=== PATIENT | female | born 1990 | race Caucasian/White ===

== ENCOUNTER 2021-06-22 11:47 | Emergency (ER) | payer BC ==
[2021-06-22 12:51] VITALS: BP 111/63; PULSE 75
== END 2021-06-22 12:48 | disposition home or self-care (01) ==
LOC: MW.ED 11:47
DX: N39.0 Urinary tract infection, site not specified (principal); Z86.16 Personal history of COVID-19
CPT/HCPCS: 81001; 81025; 99283

== ENCOUNTER 2022-08-13 02:51 | Emergency (ER) | payer BC ==
[2022-08-13 03:05] VITALS: BP 125/75
[2022-08-13 04:12] LABS: CORONAVIRUS COVID-19 NAA NEGATIVE (NEGATIVE); INFLUENZA A NAA NEGATIVE (NEGATIVE); INFLUENZA B NAA NEGATIVE (NEGATIVE)
[2022-08-13 04:17] LABS: CARBON DIOXIDE,CO2 23.7 mmol/L (21.0-32.0); POTASSIUM,K 3.6 mmol/L (3.5-5.1)
[2022-08-13 04:48] VITALS: PULSE 67
== END 2022-08-13 04:47 | disposition home or self-care (01) ==
LOC: MW.ED 02:51
DX: O20.9 Hemorrhage in early pregnancy, unspecified (principal); Z86.16 Personal history of COVID-19; Z20.822 Contact with and (suspected) exposure to COVID-19; Z3A.08 8 weeks gestation of pregnancy
CPT/HCPCS: 0240U; 36415; 76801; 80053; 81001; 84702; 85025; 86900; 86901; 99284; 99283

== ENCOUNTER 2023-03-14 05:10 | Inpatient (IN) | payer BC ==
[2023-03-14] MEDS ORDERED: Oxytocin/0.9 % Sodium Chloride 30 UNIT/500 ML BAG IV SCH ×2 (06:00)
[2023-03-14] MEDS ORDERED: Sodium Chloride 0.9% 20 ML SDV IV PRN (06:00)
[2023-03-14] MEDS ORDERED: Lactated Ringers 1,000 ML IV SCH ×3 (06:00→09:45)
[2023-03-14] MEDS ORDERED: Lidocaine 1% 50 ML MDV INJECT PRN (06:00)
[2023-03-14] MEDS ORDERED: Sodium Chloride 0.9% 10 ML Syringe FLUSH PRN (06:00)
[2023-03-14] MEDS ORDERED: Sodium Chloride 0.9% 2.5 ML Syringe FLUSH PRN (06:00)
[2023-03-14] MEDS ORDERED: Tranexamic Acid IN NACL,ISO-OS 1,000 MG in Premix Bag 1 BAG IV PRN ×2 (06:00)
[2023-03-14] MEDS ORDERED: Carboprost Tromethamine 250 MCG/1 mL Vial IM PRN (06:00)
[2023-03-14] MEDS ORDERED: Citric Acid/Sodium Citrate Solution 30 ML Cup PO ONE (06:00)
[2023-03-14] MEDS ORDERED: Water For Irrigation,Sterile 1,000 ML Container IRR PRN (06:00)
[2023-03-14] MEDS ORDERED: Misoprostol 200 MCG Tab PO PRN (06:00)
[2023-03-14] MEDS ORDERED: Methylergonovine 0.2 MG/1 ML Amp IM PRN ×2 (06:00→09:39)
[2023-03-14 06:33] LABS: HEMATOCRIT 33.2 % (37.0-47.0); HEMOGLOBIN 11.1 g/dL (12.0-16.0); MEAN CORPUSCULAR HEMOGLOBIN 27.1 pg (28.0-32.0); MEAN CORPUSCULAR HGB CONC 33.4 g/dL (32.0-36.0); MEAN PLATELET VOLUME 12.5 fL (9.4-12.3); PLATELET COUNT,PLT 157 K/uL (150-400); WHITE BLOOD CELL COUNT,WBC 6.76 K/uL (3.9-11.3)
[2023-03-14] MEDS ORDERED: Oxytocin 10 Units/1 ML SDV ONE (06:46)
[2023-03-14] MEDS ORDERED: droPERidol 5 MG/2 ML SDV ONE (06:47)
[2023-03-14] MEDS ORDERED: Phenylephrine 1% 10 MG/ML SDV ONE (06:47)
[2023-03-14] MEDS ORDERED: Ketorolac 30 MG/ML SDV ONE (06:47)
[2023-03-14] MEDS ORDERED: Lidocaine 2% 5 ML SDV ONE (06:47)
[2023-03-14] MEDS ORDERED: Ropivacaine 0.5% 5 MG/ML 30 ML SDV ONE (06:47)
[2023-03-14] MEDS ORDERED: Ondansetron 4 MG/2 ML SDV ONE (06:47)
[2023-03-14] MEDS ORDERED: Dexmedetomidine 200 MCG/2 ML SDV ONE (06:47)
[2023-03-14] MEDS ORDERED: Dexamethasone 4 MG/ML 5 ML MDV ONE (06:47)
[2023-03-14] MEDS ORDERED: ceFAZolin 1 GM Vial ONE (06:48)
[2023-03-14] MEDS ORDERED: fentaNYL 100 MCG/2 ML SDV ONE (06:49)
[2023-03-14] MEDS ORDERED: Morphine PF 10 MG/10 ML SDV ONE (06:49)
[2023-03-14] MEDS ORDERED: Water For Injection, Sterile 20 ML ONE (06:55)
[2023-03-14] MEDS ORDERED: Albuterol 0.083% 2.5 MG/3 ML Neb Soln NEB PRN (07:19)
[2023-03-14] MEDS ORDERED: Acetaminophen/oxyCODONE 325-5 MG Tab PO PRN ×3 (07:19→09:39)
[2023-03-14] MEDS ORDERED: fentaNYL 50 MCG/ML SDV IVPUSH PRN ×2 (07:19)
[2023-03-14] MEDS ORDERED: Ondansetron 4 MG/2 ML SDV IVPUSH PRN ×3 (07:19→09:39)
[2023-03-14] MEDS ORDERED: diphenhydrAMINE 50 MG/ML SDV IVPUSH PRN ×2 (07:19→09:39)
[2023-03-14] MEDS ORDERED: droPERidol 5 MG/2 ML SDV IVPUSH PRN (07:19)
[2023-03-14] MEDS ORDERED: Metoclopramide 10 MG/2 ML SDV IVPUSH PRN (07:19)
[2023-03-14] MEDS ORDERED: Morphine 2 MG/ML SYRINGE IVPUSH PRN (07:19)
[2023-03-14] MEDS ORDERED: HYDROmorphone 1 MG/ML Syringe IVPUSH PRN (07:19)
[2023-03-14] MEDS ORDERED: Naloxone 0.4 MG/ML SDV IVPUSH PRN (07:19)
[2023-03-14] MEDS ORDERED: ePHEDrine 50 MG/ML SDV IVPUSH PRN (07:19)
[2023-03-14] MEDS ORDERED: Glycopyrrolate 0.2 MG/ML SDV ONE (08:12)
[2023-03-14] MEDS ORDERED: Ketorolac 30 MG/ML SDV IVPUSH SCH ×2 (09:00→09:45)
[2023-03-14] MEDS ORDERED: Bisacodyl 10 MG Supp RECTAL PRN (09:39)
[2023-03-14] MEDS ORDERED: Oxytocin 10 Units/1 ML SDV IM PRN (09:39)
[2023-03-14] MEDS ORDERED: Misoprostol 200 MCG Tab RECTAL PRN (09:39)
[2023-03-14] MEDS ORDERED: Lanolin 100% Cream 7 GM Tube TOP PRN (09:39)
[2023-03-14 09:52] LABS: PH,UMBILICAL ARTERIAL 7.24 (7.18-7.38); PH,UMBILICAL VENOUS 7.31 (7.25-7.45)
[2023-03-14] MEDS: Acetaminophen 1,000 MG in Premix Bag 1 BAG IV SCH ×3 (11:14→23:07)
[2023-03-14] MEDS: Simethicone 80 MG Tab.Chew PO SCH ×3 (12:50→23:07)
[2023-03-14] MEDS: Ketorolac 30 MG/ML SDV IVPUSH SCH ×3 (14:58→20:33)
[2023-03-14] MEDS: Docusate Sodium 100 MG Cap PO SCH (20:33)
[2023-03-15] MEDS: Ketorolac 30 MG/ML SDV IVPUSH SCH ×2 (02:55→09:00)
[2023-03-15] MEDS: Acetaminophen 1,000 MG in Premix Bag 1 BAG IV SCH (05:46)
[2023-03-15] MEDS: Simethicone 80 MG Tab.Chew PO SCH ×3 (05:46→19:05)
[2023-03-15 06:20] LABS: HEMATOCRIT 27.6 % (37.0-47.0); HEMOGLOBIN 9.1 g/dL (12.0-16.0)
[2023-03-15] MEDS: Docusate Sodium 100 MG Cap PO SCH ×2 (09:01→20:57)
[2023-03-15] MEDS ORDERED: oxyCODONE 5 MG Tab PO PRN (11:45)
[2023-03-15] MEDS: Sodium Ferric Gluconate Cmplex 125 MG in Sodium Chloride 0.9% 100 ML IV SCH (12:37)
[2023-03-15] MEDS ORDERED: Ibuprofen 800 MG Tab PO PRN (15:45)
[2023-03-15] MEDS: Ibuprofen 800 MG Tab PO SCH ×2 (16:23→19:05)
[2023-03-15] MEDS: Acetaminophen 500 MG Tab PO SCH ×2 (16:30→22:04)
[2023-03-15] MEDS: Acetaminophen 325 MG Tab PO SCH ×2 (16:30→16:34)
[2023-03-16] MEDS: Simethicone 80 MG Tab.Chew PO SCH ×3 (01:13→12:01)
[2023-03-16] MEDS: Ibuprofen 800 MG Tab PO SCH ×2 (03:55→12:00)
[2023-03-16] MEDS: Acetaminophen 500 MG Tab PO SCH ×2 (05:00→10:47)
[2023-03-16] MEDS: Docusate Sodium 100 MG Cap PO SCH (08:48)
[2023-03-16] MEDS: Sodium Ferric Gluconate Cmplex 125 MG in Sodium Chloride 0.9% 100 ML IV SCH (09:17)
[2023-03-16 09:31] VITALS: BP 134/76; PULSE 75
== END 2023-03-16 13:23 | disposition home or self-care (01) | DRG 540 ==
LOC: MW.OB 05:10
PROVIDERS: ADMIT Obstetrics & Gynecology; ATTEND Obstetrics & Gynecology
PROC: 10D00Z1 Extraction of Products of Conception, Low, Open Approach (ICD-10-PCS; principal; 2023-03-14 08:00)
DX: O34.211 Maternal care for low transverse scar from previous cesarean delivery (principal); O99.214 Obesity complicating childbirth; O69.2XX0 Labor and delivery complicated by other cord entanglement, with compression, not applicable or unspecified; Z37.0 Single live birth; Z3A.39 39 weeks gestation of pregnancy
CPT/HCPCS: 36415; 82803; 85014; 85018; 85027; 86592; 86850; 86900; 86901; A9270-GY; J0131; J0690; J1100; J1790; J1885; J2274; J2371; J2405; J2590; J2795; J2916; J3010; J3490

== ENCOUNTER 2023-04-28 21:54 | Emergency (ER) | payer BC ==
[2023-04-29 00:55] VITALS: BP 115/72; PULSE 71
== END 2023-04-29 00:55 | disposition home or self-care (01) ==
LOC: MW.ED 21:54
DX: K59.00 Constipation, unspecified (principal); E66.9 Obesity, unspecified; Z86.16 Personal history of COVID-19; Z68.34 Body mass index [BMI] 34.0-34.9, adult
CPT/HCPCS: 74019; 74019-26; 99283

== ENCOUNTER 2024-08-22 13:01 | Emergency (ER) | payer BC, MEDICAID ==
[2024-08-22 14:02] LABS: APPEARANCE,URINE CLEAR; BILIRUBIN,URINE NEGATIVE (NEGATIVE); COLOR,URINE YELLOW; GLUCOSE,URINE NEGATIVE (NEGATIVE); KETONES,URINE TRACE mg/dL (NEGATIVE); LEUKOCYTE ESTERASE,URINE NEGATIVE (NEGATIVE); NITRITE,URINE NEGATIVE (NEGATIVE); OCCULT BLOOD,URINE TRACE-LYSED (NEGATIVE); PH,URINE 5.5 (5.0-8.0); PROTEIN,URINE NEGATIVE (NEGATIVE)
[2024-08-22 14:12] LABS: BACTERIA,URINE FEW (NEGATIVE); EPITHELIAL CELLS,URINE RARE (NONE-FEW); RBC,URINE 0-1 (0-2/HPF); WBC,URINE 0-1 (0-5/HPF)
[2024-08-22 14:13] LABS: MUCUS,URINE FEW (NONE-MOD)
[2024-08-22 14:52] LABS: CANDIDA DNA PROBE NEGATIVE (NEGATIVE); GARDNERELLA DNA PROBE NEGATIVE (NEGATIVE); TRICHOMONAS DNA PROBE NEGATIVE (NEGATIVE)
[2024-08-22 15:31] VITALS: BP 113/65; PULSE 88
[2024-08-22 15:34] LABS: C. TRACHOMATIS BY PCR NOT DETECTED; N. GONORRHOEAE BY PCR NOT DETECTED
== END 2024-08-22 15:29 | disposition home or self-care (01) ==
LOC: MW.ED 13:01
DX: Z11.3 Encounter for screening for infections with a predominantly sexual mode of transmission (principal)
CPT/HCPCS: 36415; 81001; 81025; 86592; 87389; 87480; 87491; 87510; 87591; 87660; 99283; 99284